=== PATIENT | female | born 1990 | race Caucasian/White ===

== ENCOUNTER 2016-10-15 09:42 | Emergency (ER) | payer OTHER ==
--- NOTE | 2016-10-15 10:10 | PN ---
Hospitalist Progress Note CAT note Patient is a healthy 26yo F, 27 weeks , who presented to lab for 3h glucose test. Her fasting glucose was 81, she drank the test liquid and before her second blood draw had a syncopal episode, hitting the left side of her head. On my arrival, patient was AAOx3, c/o mild left headache. Has had syncopal episodes in the past. Denies chest pain, palpitations or dyspnea. [place] a flushing sensation before passing out. Fingerstick was 142. VSS HR 65 RR 18 SO2 98% RA BP 127/68 EKG showed no significant arrhythmias. Suspect this was likely a vasovagal episode. Will send to ED for further evaluation.
[2016-10-15 11:10] VITALS: BP 109/73
--- NOTE | 2016-10-15 18:13 | ED ---
Debbie Mckeon Claudia, scribed for Francisco Ramirez MD on 10/15/16 at 1054 . Syncope/Near Syncope - HPI Summary HPI Summary: 26 year old female presents to the ED after having a syncopal episode in the outpatient lab at [facility]. Pt is 28 weeks with her second child. G 2 P1. Pt states she was doing a 3 hour glucose test this am causing her to have to fast. Pt notes that she had her 1st blood draw at 8:20 and was then waiting in the waiting room for her second blood draw when she became nauseous and felt " a wave of heat" before closing her eyes and passing out. Pt states she is now experiencing some nausea which is out of character for her . Pt denies any CP,cough, GUERRERO,SOB, vomiting, nasal discharge, sore throat, vaginal discharge or bleeding, and urinary changes, incontinence, fever, chills, new back pain, leg pain. Pt states that she thinks she will feel better after her last blood draw when she can finally eat. Pt denies any pain to her head. She also mentions she has had a normal thus far and is expected to deliver at [facility]. She notes she had some painful contractions today after the syncopal episode today but notes that she has had them since 4months into her . She sates that the contractions today were 20 minutes apart. She states that she has been feeling the baby move since the episode. - History Of Current Complaint Chief Complaint: EDSyncope Time Seen by Provider: 10/15/16 10:32 Hx Obtained From: Patient Onset/Duration: Sudden Onset Timing: Intermittent Episode Lasting Context: Witnessed Activity At Onset: At Rest Associated Head Trauma: Yes Associated Signs And Symptoms: Other - NO SOB, NO CP Frequency: Episodes x___ - 1 - Allergies/Home Medications Allergies/Adverse Reactions: Allergies Allergy/AdvReac Type Severity Reaction Status Date / Time No Known Allergies Allergy Verified 12/29/12 05:14 PMH/Surg Hx/FS Hx/Imm Hx Previously Healthy: Yes Endocrine/Hematology History: Denies: Hx Diabetes Cardiovascular History: Denies: Hx Myocardial Infarction - Immunization History Date of Tetanus Vaccine: unknown Date of Influenza Vaccine: no Infectious Disease History: No Infectious Disease History: Denies: Traveled Outside the [place] in Last 30 Days - Family History Known Family History: Negative: Diabetes - Social History Occupation: Employed Full-time Lives: With Family Alcohol Use: None Substance Use Type: Reports: None Smoking Status (MU): Never Smoked Tobacco Review of Systems Constitutional: Negative Negative: Fever, Chills Eyes: Negative ENT: Negative Negative: Sore Throat, Nasal Discharge Cardiovascular: Negative Negative: Chest Pain Negative: Shortness Of Breath, Cough Positive: Nausea. Negative: Vomiting Genitourinary: Negative Negative: dysuria, discharge, frequency, incontinence, urgency Musculoskeletal: Negative Skin: Negative Neurological: Negative Negative: Headache Psychological: Normal All Other Systems Reviewed And Are Negative: Yes Physical Exam - Summary Physical Exam Summary: The patient is well-nourished in no acute distress and in no acute pain. The skin is warm and dry and skin color reflects adequate perfusion. HEENT: The head is normocephalic and atraumatic. The pupils are equal and reactive. The conjunctivae are clear and without drainage. Nares are patent and without drainage. Mouth reveals moist mucous membranes and the throat is without erythema and exudate. The external ears are intact. The ear canals are patent and without drainage. The tympanic membranes are intact. No racoon sign, no guerra signs. No edema or swelling palpated on her head. Neck is supple with full range of motion and non-tender. There are no carotid bruits. There is no neck vein distension. Respiratory: Chest is non-tender. Lungs are clear to auscultation and breath sounds are symmetrical and equal. Cardiovascular: Hear is regular rate and rhythm. There is no murmur or rub auscultated. There is no peripheral edema and pulses are symmetrical and equal. Abdomen: The abdomen is soft and non-tender. There are normal bowel sounds heard in all four quadrants and there is no organomegaly palpated. Belly is gravid. Musculoskeletal: There is no back pain noted. Extremities are non-tender with full range of motion. There is good capillary refill. There is no peripheral edema or calf tenderness elicited. Neurological: Patient is alert and oriented to person, place and time. The patient has symmetrical motor strength in all four extremities. Cranial nerves are grossly intact. Deep tendon reflexes are symmetrical and equal in all four extremities. Psychiatric: The patient has an appropriate affect and does not exhibit any anxiety or depression. Triage Information Reviewed: Yes Vital Signs On Initial Exam: Initial Vitals Temp Pulse Resp BP Pulse Ox 98.5 F 94 20 105/67 99 10/15/16 09:56 10/15/16 09:56 10/15/16 09:56 10/15/16 09:56 10/15/16 09:56 Vital Signs Reviewed: Yes - [place] Coma Scale Coma Scale Total: 15 Diagnostics - Vital Signs Vital Signs Temp Pulse Resp BP Pulse Ox 10/15/16 09:56 98.5 F 94 20 105/67 99 - Laboratory Lab Statement: Any lab studies that have been ordered have been reviewed, and results considered in the medical decision making process. Course/Dx - Diagnoses Differential Diagnosis/HQI/PQRI: Positive: Other - syncope, , hypoglycemia Provider Diagnoses: Syncope Discharge - Discharge Plan Condition: Stable Disposition: HOME Patient Education Materials: Syncope (ED), (ED) Referrals: No Primary Care Phys,NOPCP [Primary Care Provider] - The documentation as recorded by the Debbie garcias Claudia accurately reflects the service I personally performed and the decisions made by , Francisco Ramirez MD.
== END 2016-10-15 11:12 | disposition home or self-care (01) ==
LOC: ED 09:42
DX: R55 Syncope and collapse (principal); R11.0 Nausea
CPT/HCPCS: 93005; 99281

== ENCOUNTER 2016-12-28 20:44 | Inpatient (IN) | payer OTHER ==
[2016-12-28 22:13] LABS: Hematocrit 33 % (35-47); Hemoglobin 10.9 g/dl (12.0-16.0); Mean Corpuscular HGB Conc 34 g/dl (31-36); Mean Corpuscular Hemoglobin 27 pg (27-31); Mean Corpuscular Volume 80 fL (80-97); Mean Platelet Volume 8 um3 (7.4-10.4); Red Blood Count 4.08 10^6/ul (4.0-5.4); Red Cell Distribution Width 14 % (10.5-15); White Blood Count 11.9 10^3/ul (3.5-10.8)
[2016-12-28] MEDS ORDERED: OBEPIDURAL* 250 ML ONE (22:17)
[2016-12-28] MEDS ORDERED: EPHEDrine (Pressors)* 50 MG/ML VIAL IV PUSH PRN (22:44)
[2016-12-28] MEDS ORDERED: Phenylephrine IV* 40 MCG/ML 10 ML SYRINGE IV PUSH PRN (22:44)
[2016-12-28] MEDS ORDERED: Sodium Citrate/Citric Acid* 15 ML UDC PO PRN (22:44)
[2016-12-28] MEDS ORDERED: Famotidine TAB* 20 MG PO PRN (22:44)
[2016-12-28] MEDS ORDERED: OBEPIDURAL* 250 ML EPIDURAL SCH (23:00)
[2016-12-29] MEDS ORDERED: Oxytocin in LR* 20 UNITS/1,000 ML BAG IVPB ONE (00:14)
[2016-12-29] MEDS ORDERED: Glycerin ADULT SUPP PR PRN (00:57)
[2016-12-29] MEDS ORDERED: Witch Hazel PAD* JAR TOPICAL PRN (00:57)
[2016-12-29] MEDS ORDERED: Dibucaine 1% 28.35 GM TUBE PR PRN (00:57)
[2016-12-29] MEDS ORDERED: Ibuprofen TAB* 600 MG PO PRN (00:57)
[2016-12-29] MEDS ORDERED: Acetaminophen TAB* 325 MG PO PRN (00:57)
[2016-12-29] MEDS ORDERED: Oxytocin in LR* 20 UNITS/1,000 ML BAG IVPB SCH (01:00)
[2016-12-29] MEDS ORDERED: Simethicone CHEW TAB* 80 MG PO SCH (08:30)
[2016-12-29] MEDS: Docusate CAP* 100 MG PO SCH ×3 (10:50→21:37)
[2016-12-30 07:04] LABS: Hematocrit 31 % (35-47); Hemoglobin 10.3 g/dl (12.0-16.0); Mean Corpuscular HGB Conc 34 g/dl (31-36); Mean Corpuscular Hemoglobin 27 pg (27-31); Mean Corpuscular Volume 80 fL (80-97); Mean Platelet Volume 8 um3 (7.4-10.4); Red Blood Count 3.86 10^6/ul (4.0-5.4); Red Cell Distribution Width 14 % (10.5-15); White Blood Count 8.7 10^3/ul (3.5-10.8)
[2016-12-30] MEDS: Docusate CAP* 100 MG PO SCH (08:30)
[2016-12-30 08:53] VITALS: BP 93/54
[2016-12-30] MEDS ORDERED: Ferrous Gluconate TAB* 324 MG TAB PO SCH (09:00)
== END 2016-12-30 11:50 | disposition home or self-care (01) | DRG 775 ==
LOC: MCHOBOUT 20:44 → MCHOB 21:11
PROVIDERS: ADMIT Midwife; ATTEND Midwife
PROC: 10E0XZZ Delivery of Products of Conception, External Approach (ICD-10-PCS; principal; 2016-12-29)
PROC: 10907ZC Drainage of Amniotic Fluid, Therapeutic from Products of Conception, Via Natural or Artificial Opening (ICD-10-PCS; 2016-12-29)
DX: O80 Encounter for full-term uncomplicated delivery (principal); Z37.0 Single live birth; Z3A.38 38 weeks gestation of pregnancy
CPT/HCPCS: 36415; 85025; 85027; 86850; 86900; 86901; A9270-GY